=== PATIENT | male | born 1980 | race African-American/Black ===

== ENCOUNTER 2018-10-04 23:50 | Inpatient (IN) | payer BC ==
[2018-10-05] MEDS ORDERED: NACL 0.9% 3 ML SYG IV (00:30)
[2018-10-05] MEDS ORDERED: ACETAMINOPHEN 325 MG TAB PO (00:30)
[2018-10-05] MEDS ORDERED: ALBUTEROL/IPRATROPIUM (NEB) 3 ML AMP HHN (00:30)
[2018-10-05] MEDS: ONDANSETRON 4 MG INJ IV (00:46)
[2018-10-05] MEDS: SOD CHLORIDE 0.9% 500 ML IV (00:46)
[2018-10-05] MEDS: SOD CHLORIDE 0.9% 1,000 ML IV ×4 (00:46→22:25)
[2018-10-05 00:58] LABS: ADD MAN DIFF? NO
[2018-10-05 01:00] LABS: ABNORMAL IP MESSAGE 1; BASOPHIL # 0.1 10^3/ul (0.0-0.1); BASOPHILS % 0.3 % (0.0-2.0); EOSINOPHILS # 0.2 10^3/ul (0.0-0.5); HEMATOCRIT 50.7 % (42.0-52.0); HEMOGLOBIN 16.2 g/dl (14.0-18.0); LYMPHOCYTES # 2.7 10^3/ul (0.8-2.9); LYMPHOCYTES % 18.2 % (15.0-51.0); MEAN CORPUSCULAR HEMOGLOBIN 30.5 pg (29.0-33.0); MEAN CORPUSCULAR VOLUME 95.3 fl (82.0-101.0); MEAN PLATELET VOLUME 10.1 fl (7.4-10.4); MONOCYTE # 1.8 10^3/ul (0.3-0.9); MONOCYTES % 12.2 % (0.0-11.0); NEUTROPHIL # 10.1 10^3/ul (1.6-7.5); NEUTROPHILS % 67.8 % (39.0-77.0); PLATELET COUNT 300 10^3/UL (140-415); POSITIVE DIFF @See below; RED BLOOD COUNT 5.32 10^6/ul (4.70-6.10); RED CELL DISTRIBUTION WIDTH 14.2 % (11.5-14.5)
[2018-10-05 01:20] LABS: ALANINE AMINOTRANSFERASE 25 IU/L (13-69); ALBUMIN 5.2 g/dl (3.3-4.9); ALKALINE PHOSPHATASE 79 IU/L (42-121); ANION GAP 19 (5-13); ASPARTATE AMINO TRANSFERASE 48 IU/L (15-46); BILIRUBIN,INDIRECT 0.6 mg/dl (0-1.1); BILIRUBIN,TOTAL 0.6 mg/dl (0.2-1.3); BLOOD UREA NITROGEN 35 mg/dl (7-20); CALCIUM 9.3 mg/dl (8.4-10.2); CARBON DIOXIDE 18 mmol/L (21-31); CHLORIDE 99 mmol/L (97-110); CHOL/HDL RATIO 2.8 RATIO; CHOLESTEROL 167 mg/dl (100-200); CREATININE 6.09 mg/dl (0.61-1.24); Estimated GFR 10 mL/min (>60); GLUCOSE 131 mg/dl (70-220); HDL CHOLESTEROL 59 mg/dl (27-67); LDL CHOLESTEROL,CALCULATED 70 mg/dl; POTASSIUM 3.6 mmol/L (3.5-5.1); SODIUM 136 mmol/L (135-144); TOTAL PROTEIN 8.9 g/dl (6.1-8.1); TRIGLYCERIDES 190 mg/dl (0-149)
[2018-10-05] MEDS ORDERED: HYDROCODONE/APAP (5/325) TAB PO (01:30)
[2018-10-05] MEDS: HYDROCODONE/APAP (5/325) TAB PO ×3 (01:40→10:50)
[2018-10-05 02:33] LABS: HEMOGLOBIN A1C 5.4 % (0-5.9)
[2018-10-05] MEDS: HEPARIN 5,000 UNIT/1 ML VIAL SC ×2 (09:26→21:03)
[2018-10-05 09:50] LABS: ADD UMIC YES; UR ASCORBIC ACID 20 mg/dL (NEGATIVE); UR BILIRUBIN (Dip) NEGATIVE (NEGATIVE); UR BLOOD (Dip) NEGATIVE (NEGATIVE); UR CLARITY SLIGHTLY CLOUDY (CLEAR); UR COLOR YELLOW (YELLOW); UR GLUCOSE (Dip) NEGATIVE (NEGATIVE); UR KETONES (Dip) NEGATIVE (NEGATIVE); UR LEUKOCYTE ESTERASE (Dip) NEGATIVE Leu/ul (NEGATIVE); UR MUCUS MODERATE /HPF (NONE SEEN); UR NITRITE (Dip) NEGATIVE (NEGATIVE); UR RBC 1 /HPF (0-5); UR SPECIFIC GRAVITY (Dip) 1.029 (1.003-1.030); UR SQUAMOUS EPITHELIAL CELL FEW /HPF (FEW); UR TOTAL PROTEIN (Dip) 1+ mg/dl (NEGATIVE); UR UROBILINOGEN (Dip) NEGATIVE (NEGATIVE); UR WBC 4 /HPF (0-5)
[2018-10-05 10:25] LABS: POTASSIUM,URINE RANDOM 59.6 mmol/L (25-125)
[2018-10-05 10:25] LABS: SODIUM,URINE RANDOM 36 mmol/L (30-90)
[2018-10-05 10:33] LABS: LIPASE 477 U/L (23-300)
[2018-10-05 13:04] LABS: CREATININE,URINE RANDOM > 605.40 mg/dl (20-370)
[2018-10-05 13:04] LABS: SODIUM,URINE RANDOM 35 mmol/L (30-90)
[2018-10-05] MEDS: DIPHENHYDRAMINE 50 MG CAP PO (13:35)
[2018-10-05] MEDS ORDERED: DOCUSATE SODIUM 100 MG CAP PO (19:30)
[2018-10-05] MEDS: METHADONE 10 MG TAB PO (21:00)
[2018-10-05] MEDS: NIFEdipine (XL) 60 MG TAB PO (21:01)
[2018-10-06 05:09] LABS: ABNORMAL IP MESSAGE 1; ADD MAN DIFF? NO; BASOPHIL # 0.1 10^3/ul (0.0-0.1); BASOPHILS % 0.4 % (0.0-2.0); EOSINOPHILS # 0.3 10^3/ul (0.0-0.5); EOSINOPHILS % 2.2 % (0.0-7.0); HEMATOCRIT 44.1 % (42.0-52.0); HEMOGLOBIN 14.8 g/dl (14.0-18.0); LYMPHOCYTES # 2.2 10^3/ul (0.8-2.9); LYMPHOCYTES % 15.9 % (15.0-51.0); MEAN CORPUSCULAR HGB CONC 33.6 g/dl (32.0-37.0); MEAN CORPUSCULAR VOLUME 92.5 fl (82.0-101.0); MEAN PLATELET VOLUME 10.4 fl (7.4-10.4); MONOCYTE # 1.6 10^3/ul (0.3-0.9); MONOCYTES % 11.5 % (0.0-11.0); NEUTROPHIL # 9.7 10^3/ul (1.6-7.5); NEUTROPHILS % 69.6 % (39.0-77.0); PLATELET COUNT 306 10^3/UL (140-415); POSITIVE DIFF @See below; RED BLOOD COUNT 4.77 10^6/ul (4.70-6.10); RED CELL DISTRIBUTION WIDTH 13.2 % (11.5-14.5)
[2018-10-06 05:43] LABS: INR 0.95; PROTIME 12.8 Sec (11.9-14.9)
[2018-10-06 05:44] LABS: PARTIAL THROMBOPLASTIN TIME 26.9 Sec (23.0-35.0)
[2018-10-06 05:52] LABS: HEMOGLOBIN A1C 5.3 % (0-5.9)
[2018-10-06 05:56] LABS: ALANINE AMINOTRANSFERASE 43 IU/L (13-69); ALBUMIN 4.5 g/dl (3.3-4.9); ALKALINE PHOSPHATASE 77 IU/L (42-121); ANION GAP 13 (5-13); ASPARTATE AMINO TRANSFERASE 77 IU/L (15-46); BILIRUBIN,INDIRECT 0.6 mg/dl (0-1.1); BILIRUBIN,TOTAL 0.6 mg/dl (0.2-1.3); BLOOD UREA NITROGEN 34 mg/dl (7-20); CALCIUM 9.3 mg/dl (8.4-10.2); CARBON DIOXIDE 21 mmol/L (21-31); CHLORIDE 105 mmol/L (97-110); CREATININE 1.92 mg/dl (0.61-1.24); Estimated GFR 39 mL/min (>60); GLUCOSE 108 mg/dl (70-220); POTASSIUM 3.9 mmol/L (3.5-5.1); SODIUM 139 mmol/L (135-144); TOTAL PROTEIN 7.5 g/dl (6.1-8.1)
[2018-10-06 06:11] LABS: MAGNESIUM 2.5 mg/dl (1.7-2.5)
[2018-10-06 07:29] LABS: ADD UMIC YES; UR ASCORBIC ACID 40 mg/dL (NEGATIVE); UR BILIRUBIN (Dip) NEGATIVE (NEGATIVE); UR BLOOD (Dip) NEGATIVE (NEGATIVE); UR CLARITY CLEAR (CLEAR); UR COLOR YELLOW (YELLOW); UR GLUCOSE (Dip) NEGATIVE (NEGATIVE); UR KETONES (Dip) TRACE mg/dL (NEGATIVE); UR LEUKOCYTE ESTERASE (Dip) NEGATIVE Leu/ul (NEGATIVE); UR NITRITE (Dip) NEGATIVE (NEGATIVE); UR RBC 1 /HPF (0-5); UR SPECIFIC GRAVITY (Dip) 1.025 (1.003-1.030); UR TOTAL PROTEIN (Dip) 1+ mg/dl (NEGATIVE); UR UROBILINOGEN (Dip) NEGATIVE (NEGATIVE); UR WBC 3 /HPF (0-5)
[2018-10-06] MEDS: SOD CHLORIDE 0.9% 1,000 ML IV ×2 (07:30→18:28)
[2018-10-06] MEDS: METHADONE 10 MG TAB PO ×2 (08:08→21:03)
[2018-10-06 08:44] LABS: THYROID STIMULATING HORMONE 0.713 MIU/L (0.465-4.680)
[2018-10-06 08:46] LABS: AMPHETAMINE/METHAMPHETAMINE Negative (NEGATIVE); BARBITURATES Negative (NEGATIVE); BENZODIAZEPINES Negative (NEGATIVE); CANNABINOIDS Positive (NEGATIVE); COCAINE Negative (NEGATIVE)
[2018-10-06 08:50] LABS: OPIATES Positive (NEGATIVE)
[2018-10-06] MEDS: HEPARIN 5,000 UNIT/1 ML VIAL SC ×2 (09:34→21:04)
[2018-10-06] MEDS: NIFEdipine (XL) 60 MG TAB PO (09:42)
[2018-10-06] MEDS: DIPHENHYDRAMINE 50 MG CAP PO (13:24)
[2018-10-07 06:39] LABS: ADD MAN DIFF? NO
[2018-10-07 06:40] LABS: WHITE BLOOD COUNT 12.7 10^3/ul (4.8-10.8)
[2018-10-07 06:40] LABS: ABNORMAL IP MESSAGE 1; BASOPHIL # 0.1 10^3/ul (0.0-0.1); BASOPHILS % 0.6 % (0.0-2.0); EOSINOPHILS # 0.3 10^3/ul (0.0-0.5); EOSINOPHILS % 2.3 % (0.0-7.0); HEMATOCRIT 41.3 % (42.0-52.0); HEMOGLOBIN 13.6 g/dl (14.0-18.0); LYMPHOCYTES # 2.5 10^3/ul (0.8-2.9); LYMPHOCYTES % 19.9 % (15.0-51.0); MEAN CORPUSCULAR HEMOGLOBIN 30.6 pg (29.0-33.0); MEAN CORPUSCULAR HGB CONC 32.9 g/dl (32.0-37.0); MEAN CORPUSCULAR VOLUME 92.8 fl (82.0-101.0); MEAN PLATELET VOLUME 10.1 fl (7.4-10.4); MONOCYTE # 1.8 10^3/ul (0.3-0.9); MONOCYTES % 14.1 % (0.0-11.0); NEUTROPHILS % 62.7 % (39.0-77.0); PLATELET COUNT 247 10^3/UL (140-415); POSITIVE DIFF @See below; RED BLOOD COUNT 4.45 10^6/ul (4.70-6.10); RED CELL DISTRIBUTION WIDTH 13.1 % (11.5-14.5)
[2018-10-07 07:26] LABS: ANION GAP 12 (5-13); BLOOD UREA NITROGEN 29 mg/dl (7-20); CALCIUM 9.1 mg/dl (8.4-10.2); CARBON DIOXIDE 22 mmol/L (21-31); CHLORIDE 104 mmol/L (97-110); Estimated GFR > 60 mL/min (>60); GLUCOSE 116 mg/dl (70-220); POTASSIUM 4.1 mmol/L (3.5-5.1); SODIUM 138 mmol/L (135-144)
[2018-10-07] MEDS: NIFEdipine (XL) 60 MG TAB PO (09:21)
[2018-10-07] MEDS: METHADONE 10 MG TAB PO (09:21)
[2018-10-07] MEDS: HEPARIN 5,000 UNIT/1 ML VIAL SC (09:25)
[2018-10-08 17:01] LABS: CREATININE, RANDOM URINE 613 mg/dL (20-320); MICROALBUMIN 5.1 mg/dL; MICROALBUMIN/CREATININE RATIO 8 (<30)
== END 2018-10-07 17:10 | disposition home or self-care (01) | DRG 683 ==
LOC: MS1 10-06 21:15
DX: N17.9 Acute kidney failure, unspecified (principal); K86.1 Other chronic pancreatitis; E87.2 Acidosis; G89.29 Other chronic pain; E66.9 Obesity, unspecified; Z68.34 Body mass index [BMI] 34.0-34.9, adult; Z87.11 Personal history of peptic ulcer disease
CPT/HCPCS: 76775; 80048; 80053; 80061; 80307; 81001; 81003; 82043; 82436; 83036; 83690; 83735; 84100; 84133; 84155; 84300; 84443; 85025; 85610; 85730

== ENCOUNTER 2018-10-22 19:26 | Emergency (ER) | payer SELFPAY, BC | END 2018-10-22 22:02 | disposition left against medical advice (07) | LOC: E/R 19:26 | DX: Z53.21 Procedure and treatment not carried out due to patient leaving prior to being seen by health care provider (principal) | CPT/HCPCS: 93005 ==